=== PATIENT | male | born 1960 | race Caucasian/White ===

== ENCOUNTER 2022-12-04 14:41 | Emergency (ER) | payer MEDICARE ==
[~2022-12-04] VITALS: Ht 175.2 cm; Wt 69.4 kg
[2022-12-04 15:41] LABS: BASO % 0.3 % (0.0-1.0); EOS % 0.2 % (1.0-4.0); HEMATOCRIT 46.1 % (42.0-52.0); LYMPH # 1.7 10*3/uL (1.3-4.4); LYMPH % 12.9 % (27.0-41.0); MEAN CELL VOLUME 95.6 fl (80.0-94.0); MEAN CORPUSCULAR HGB 32.6 pg (27.0-31.0); MEAN CORPUSCULAR HGB CONC 34.1 g/dl (33.0-37.0); MEAN PLATELET VOLUME 8.7 fl (9.6-12.3); MONO # 0.7 10*3/uL (0.1-1.0); MONO % 5.5 % (3.0-9.0); NEUT # 10.7 10*3/uL (2.3-7.9); NEUT % 80.7 % (47.0-73.0); PLATELET COUNT AUTOMATED 347 10*3/uL (130-400); RED BLOOD COUNT 4.82 10*6/uL (4.50-5.90); RED CELL DISTRI WIDTH 13.1 % (0-14.5); WHITE BLOOD COUNT 13.2 10*3/uL (4.8-10.8)
[2022-12-04 15:51] LABS: ACT PARTIAL THROMBO TIME 24.9 SECONDS (20.0-32.1)
[2022-12-04 15:59] LABS: ALKALINE PHOSPHATASE 106 U/L (46-116); BUN 11 mg/dl (9-23); CHLORIDE 108 mmol/L (98-107); POTASSIUM 3.2 mmol/L (3.4-5.1); SGPT/ALT 10 U/L (10-49); TOTAL PROTEIN 7.3 gm/dL (6.0-8.0)
== END 2022-12-04 20:47 | disposition home or self-care (01) ==
LOC: ED 14:41
PROVIDERS: Emergency Medicine
DX: R10.13 Epigastric pain (principal); R10.32 Left lower quadrant pain; E87.6 Hypokalemia; D72.829 Elevated white blood cell count, unspecified; R07.89 Other chest pain; K21.9 Gastro-esophageal reflux disease without esophagitis; Z88.5 Allergy status to narcotic agent

== ENCOUNTER 2024-03-11 18:34 | Emergency (ER) | payer MEDICARE ==
[~2024-03-11] VITALS: Ht 175.2 cm; Wt 63.5 kg
[2024-03-11] MEDS ORDERED: Lidocaine Hydrochloride 15 ML UDC PO STA (18:54)
[2024-03-11] MEDS ORDERED: MG-AL HYDROXIDE/SIMETICONE 30 ML UDC PO STA (18:54)
[2024-03-11] MEDS ORDERED: Dicyclomine Hydrochloride 20 MG/10 ML OSYR PO STA (18:54)
[2024-03-11] MEDS ORDERED: SODIUM CHLORIDE 0.9% 1,000 ML IV ONE (18:55)
[2024-03-11 19:17] LABS: BASO % 0.2 % (0.0-1.0); BILIRUBIN Negative (Negative); BLOOD Negative (Negative); CLARITY Clear (Clear); COLOR Yellow (Yellow); EOS % 0.1 % (1.0-4.0); GLUCOSE Negative (Negative); HEMATOCRIT 46.7 % (42.0-52.0); KETONE 1+ (Negative); LEUKO ESTERASE Negative (Negative); LYMPH # 1.9 10*3/uL (1.3-4.4); MEAN PLATELET VOLUME 8.4 fl (9.6-12.3); MONO # 0.8 10*3/uL (0.1-1.0); MONO % 9.4 % (3.0-9.0); NEUT # 5.3 10*3/uL (2.3-7.9); NEUT % 66.2 % (47.0-73.0); NITRITE Negative (Negative); PH 5.5 (4.5-8.0); PLATELET COUNT AUTOMATED 306 10*3/uL (130-400); RED BLOOD COUNT 4.97 10*6/uL (4.50-5.90); SPECIFIC GRAVITY 1.025 (1.001-1.030); WHITE BLOOD COUNT 8.1 10*3/uL (4.8-10.8)
[2024-03-11 19:30] LABS: BACTERIA 1+; MUCOUS 2+; RBC 0-2 rbc/hpf (0-2)
[2024-03-11 19:34] LABS: ALKALINE PHOSPHATASE 120 U/L (46-116); BUN 22 mg/dl (9-23); CHLORIDE 108 mmol/L (98-107); LIPASE 49 U/L (12-53); POTASSIUM 3.4 mmol/L (3.4-5.1); SGPT/ALT 8 U/L (5-49); TOTAL PROTEIN 7.7 gm/dL (6.0-8.0)
[2024-03-11] MEDS ORDERED: PEPCID20 MG PO (20:57)
== END 2024-03-11 21:12 | disposition home or self-care (01) ==
LOC: ED 18:34
PROVIDERS: Physician Assistant Medical
DX: K29.70 Gastritis, unspecified, without bleeding (principal); I10 Essential (primary) hypertension; K21.9 Gastro-esophageal reflux disease without esophagitis; R11.0 Nausea; E78.5 Hyperlipidemia, unspecified; Z88.5 Allergy status to narcotic agent

== ENCOUNTER 2024-08-28 17:01 | Emergency (ER) | payer MEDICARE ==
[~2024-08-28 17:01] MED LIST: PEPCID20 MG PO
== END 2024-08-28 17:41 | disposition left against medical advice (07) ==
LOC: ED 17:01
DX: R10.9 Unspecified abdominal pain (principal); Z88.5 Allergy status to narcotic agent; Z53.21 Procedure and treatment not carried out due to patient leaving prior to being seen by health care provider

== ENCOUNTER 2024-08-28 21:09 | Emergency (ER) | payer MEDICARE ==
[~2024-08-28] VITALS: Ht 175.2 cm; Wt 63.5 kg
== END 2024-08-28 22:48 | disposition left against medical advice (07) ==
LOC: ED 21:09
DX: R10.9 Unspecified abdominal pain (principal); I10 Essential (primary) hypertension; K21.9 Gastro-esophageal reflux disease without esophagitis; F17.200 Nicotine dependence, unspecified, uncomplicated; Z88.5 Allergy status to narcotic agent; Z53.21 Procedure and treatment not carried out due to patient leaving prior to being seen by health care provider

== ENCOUNTER 2025-08-04 17:42 | Emergency (ER) | payer MEDICARE ==
[~2025-08-04] VITALS: Ht 175.2 cm; Wt 68.0 kg
[2025-08-04] MEDS ORDERED: Acetaminophen/Oxycodone 5 MG/325 MG TABLET PO ONE (18:05)
[2025-08-04] MEDS ORDERED: Amoxicillin/Clavulanate Pota 875 MG TAB PO ONE (18:05)
[2025-08-04] MEDS ORDERED: AMOX-CLAV 875-1 EACH PO (18:08)
[2025-08-04] MEDS ORDERED: MELOXICAM15 MG PO (18:08)
== END 2025-08-04 18:16 | disposition home or self-care (01) ==
LOC: ED 17:42
DX: S61.452A Open bite of left hand, initial encounter (principal); L03.114 Cellulitis of left upper limb; I10 Essential (primary) hypertension; Z88.5 Allergy status to narcotic agent; Z79.899 Other long term (current) drug therapy; W55.01XA Bitten by cat, initial encounter; Y93.89 Activity, other specified; Y92.89 Other specified places as the place of occurrence of the external cause; Y99.8 Other external cause status